=== PATIENT | female | born 1985 | race Caucasian/White ===

== ENCOUNTER 2016-10-25 18:20 | Emergency (ER) | payer OTHER ==
[2016-10-25 18:38] VITALS: O2SAT 99
--- NOTE | 2016-10-25 18:55 | ED PDOC ---
HPI: Abdomen Time Seen by Provider: 10/25/16 18:51 Chief Complaint (Nursing): Abdominal Pain Chief Complaint (Provider): right side abd pain History Per: Patient Additional Complaint(s): 30-year-old female presents to emergency department with right-sided abdominal pain and flank pain that started 6 hours prior to arrival. Patient was sitting on her couch when she felt sharp pain radiating from flank region into right upper quadrant. She took ibuprofen but this did not help. She denies any chest pain, shortness of breath or dyspnea on exertion. Patient is mildly nauseous but denies any vomiting. No associated fever or chills, no associated diarrhea. Patient states that she is currently on the last day of her menstrual cycle. Denies dysuria, hematuria, frequency or urgency. Past Medical History Reviewed: Historical Data, Nursing Documentation, Vital Signs Vital Signs: Last Vital Signs Temp 97.9 F 10/25/16 18:36 Pulse 82 10/25/16 18:36 Resp 18 10/25/16 18:36 BP 120/71 10/25/16 18:36 Pulse Ox 99 10/25/16 19:42 - Medical History PMH: Rheumatoid Arthritis - Surgical History Surgical History: Cholecystectomy - Family History Family History: States: No Known Family Hx - Living Arrangements Living Arrangements: With Family - Social History Current smoker - smoking cessation education provided: No Alcohol: None Drugs: Denies - Home Medications Home Medications: Ambulatory Orders Medication Instructions Recorded No Known Home Med 08/30/15 - Allergies Allergies/Adverse Reactions: Allergies Allergy/AdvReac Type Severity Reaction Status Date / Time Penicillins AdvReac RASH Verified 10/25/16 18:38 Sulfa (Sulfonamide AdvReac RASH Verified 10/25/16 18:38 Antibiotics) Review of Systems ROS Statement: Except As Marked, All Systems Reviewed And Found Negative Constitutional: Negative for: Fever, Chills Cardiovascular: Negative for: Chest Pain Respiratory: Negative for: Cough Gastrointestinal: Positive for: Nausea, Abdominal Pain (RUQ radiating from right flank region). Negative for: Vomiting Genitourinary Female: Positive for: Vaginal Bleeding (on last day of her menses) . Negative for: Dysuria, Frequency, Incontinence, Hematuria, Vaginal Discharge Neurological: Negative for: Weakness, Numbness, Headache, Dizziness Physical Exam - Reviewed Nursing Documentation Reviewed: Yes Vital Signs Reviewed: Yes - Physical Exam Appears: Positive for: Well Head Exam: Positive for: ATRAUMATIC, NORMAL INSPECTION Skin: Negative for: Rash Eye Exam: Positive for: Normal appearance Cardiovascular/Chest: Positive for: Regular Rate, Rhythm Respiratory: Positive for: Normal Breath Sounds. Negative for: Accessory Muscle Use, Respiratory Distress Gastrointestinal/Abdominal: Positive for: Soft, Tenderness (RUQ). Negative for : Distended, Guarding, Rebound Back: Positive for: R CVA Tenderness (moderate). Negative for: L CVA Tenderness , Vertebral Tenderness Extremity: Negative for: Pedal Edema Neurologic/Psych: Positive for: Alert, Oriented - ECG O2 Sat by Pulse Oximetry: 99 Pulse Ox Interpretation: Normal Medical Decision Making Medical Decision Makin30 year old with right flank pain radiating to RUQ. Plan: Urine Urine dip CBC CMP UA CT abd and pelvis without contrast IVF IV toradol IV zofran Disposition - Clinical Impression Clinical Impression: Flank pain, Abdominal pain - Patient ED Disposition Is Patient to be Admitted: Transfer of Care - Disposition Disposition: Transfer of Care Disposition Time: 19:48 Condition: FAIR Patient Signed Over To: Kimberly Hoover Handoff Comments: Signed out pending diagnostic testing results and final disposition
[2016-10-25] MEDS ORDERED: Sodium Chloride 0.9% 1,000 ML IV STA (19:25)
[2016-10-25 20:14] LABS: BASO # 0.1 K/uL (0.0-0.2); BASO % 0.5 % (0.0-2.0); EOS # 0.3 K/uL (0.0-0.7); EOS % 2.8 % (0.0-4.0); HEMATOCRIT 39.8 % (34.0-47.0); LYMPH # 3.5 K/uL (1.0-4.3); LYMPH % 31.2 % (20.0-40.0); MEAN CELL VOLUME 84.5 fl (81.0-99.0); MEAN CORPUSCULAR HEMOGLOBIN 28.5 pg (27.0-31.0); MEAN CORPUSCULAR HGB CONC 33.8 g/dL (33.0-37.0); MEAN PLATELET VOLUME 9.7 fl (7.2-11.7); MONO # 0.7 K/uL (0.0-0.8); MONO % 6.1 % (0.0-10.0); NEUT # 6.6 K/uL (1.8-7.0); NEUT % 59.4 % (50.0-75.0); NRBC % 0.1 % (0.0-0.0); RED CELL DISTRIBUTION WIDTH 13.2 % (11.5-14.5); WHITE BLOOD COUNT 11.1 K/uL (4.8-10.8)
[2016-10-25 20:16] LABS: ALB/GLOB RATIO 1.1 (1.0-2.1); ALKALINE PHOSPHATASE 49 U/L (38-126); ALT/SGPT 28 U/L (9-52); AST/SGOT 23 U/L (14-36); BILIRUBIN,TOTAL 0.2 mg/dl (0.2-1.3); BLOOD UREA NITROGEN 13 mg/dl (7-17); CALCIUM 9.5 mg/dL (8.4-10.2); CARBON DIOXIDE 25 mmol/L (22-30); CHLORIDE 105 mmol/L (98-107); GFR AFRICAN-AMERICAN > 60; GLUCOSE,RANDOM 88 mg/dL (65-105); POTASSIUM 4.4 MMOL/L (3.6-5.0); SODIUM 141 mmol/l (132-148); TOTAL PROTEIN 8.1 G/DL (6.3-8.2)
[2016-10-25 21:59] LABS: RBC URINE 1 /hpf (0-3); URINE BILIRUBIN NEGATIVE (NEGATIVE); URINE COLOR STRAW (YELLOW); URINE GLUCOSE (UA) NEG (Normal); URINE KETONE NEGATIVE (NEGATIVE); URINE LEUKOCYTE ESTERASE NEG Leu/uL (Negative); URINE PROTEIN NEGATIVE (NEGATIVE); URINE UROBILINOGEN 0.2-1.0 mg/dL (0.2-1.0); WBC URINE 1 /hpf (0-5)
[2016-10-25 22:01] LABS: URINE BLOOD NEGATIVE (NEGATIVE)
--- NOTE | 2016-10-25 22:31 | CT ---
EXAM: CT Abdomen and Pelvis Without Intravenous Contrast CLINICAL HISTORY: 30 years old, female; Pain; Abdominal pain; Flank; Right; Prior surgery; Surgery date: 6+ months; Surgery type: Cholecystectomy around 6 yrs ago. Rt flank radiating to ruq; Additional info: Right flank pain TECHNIQUE: Axial computed tomography images of the abdomen and pelvis without intravenous contrast. This CT exam was performed using one or more of the following dose reduction techniques: automated exposure control, adjustment of the mA and/or kV according to patient size, and/or use of iterative reconstruction technique. Coronal and sagittal reformatted images were created and reviewed. COMPARISON: CT - ABD PELVIS W/O PO OR IV CONT 09/03/2014 2:45:38 PM FINDINGS: Lower thorax: There is minimal bibasilar atelectasis. ABDOMEN: Liver: There are no focal liver lesions present. Gallbladder and bile ducts: There has been a cholecystectomy. No ductal dilation. Pancreas: The pancreas is normal. No ductal dilation. Spleen: The spleen is normal. Adrenals: The adrenal glands are normal. Kidneys and ureters: Right kidney demonstrates moderate hydronephrosis and hydroureter to the level of the UVJ where there is an obstructing 3 mm calculus on series 2, image 72. The left kidney is normal. Stomach and bowel: The stomach is normal. Colonic constipation is present. There is no evidence of intestinal obstruction. No mucosal thickening. Appendix: A normal appendix is identified. PELVIS: Bladder: Bladder is decompressed. No stones. Reproductive: The uterus is normal. The ovaries are normal. ABDOMEN and PELVIS: Intraperitoneal space: There is no evidence of free intraperitoneal fluid. There is no free intraperitoneal air. Bones/joints: There are mild degenerative changes present. No acute fracture. No dislocation. Soft tissues: Unremarkable. Vasculature: The aorta is normal. No abdominal aortic aneurysm. Lymph nodes: There is no evidence of lymphadenopathy. IMPRESSION: Right kidney demonstrates moderate hydronephrosis and hydroureter to the level of the UVJ where there is an obstructing 3 mm calculus on series 2, image 72.
--- NOTE | 2016-10-25 22:51 | ED PDOC ---
- Laboratory Results Result Diagrams: 10/25/16 20:00 10/25/16 20:00 - ECG O2 Sat by Pulse Oximetry: 99 - Progress ED Course And Treament: case signed out to sheet writer. pt pending CT scan results r/o renal stone. Re-evaluation Time: 22:49 Condition: Improving,but remains with symptoms (givne morphin IV 2mg) Medical Decision Making Medical Decision Making: dx: renal stone 3mm with mod. hydronephoris. case dicusses with MD abimael pt to be d.c with bustos control cipro and flomax stable VS Disposition - Clinical Impression Clinical Impression: Flank pain, Abdominal pain, Kidney stone - POA Present On Arrival: None - Disposition Disposition: Routine/Home Disposition Time: 22:50 Condition: STABLE Prescriptions: Ciprofloxacin [Cipro] 250 mg PO BID #14 tab Ketorolac Tromethamine [Toradol] 10 mg PO BID #15 tab Tamsulosin HCl [Flomax] 0.4 mg PO DAILY #14 cap.er.24h Instructions: Kidney Stones (ED) Progress Note - Review of Symptoms General: No: Chills, Night Sweats, Fatigue, Malaise, Appetite, Other HEENT: No: Head Aches, Visual Changes, Eye Pain, Ear Pain, Dysphasia, Sinus Congestion, Post Nasal Drip, Sore Throat, Other Pulmonary: No: Dyspnea, Cough, Pleuritic Chest Pain, Other Cardiovascular: No: Chest Pain, Palpitations, Orthopnea, Paroxysmal Noc. Dyspnea , Edema, Light Headedness, Other Gastrointestinal: No: Nausea, Vomiting, Abdominal Pain, Diarrhea, Constipation, Melena, Hematochezia, Other Genitourinary: No: Dysuria, Frequency, Incontinence, Hematuria, Retention, Other Musculoskeletal: No: Muscle Pain, Joint Pain, Other Neurological: No: Weakness, Numbness, Incoordination, Change in speech, Confusion, Seizures, Other
[2016-10-26 01:37] VITALS: BP 118/62; PULSE 86; RESP 16; TEMP 98
== END 2016-10-26 00:12 | disposition home or self-care (01) ==
LOC: H.ER 18:20
DX: N20.0 Calculus of kidney (principal); R10.9 Unspecified abdominal pain